=== PATIENT | male | born 1995 | race African-American/Black ===

== ENCOUNTER 2020-08-20 04:04 | Emergency (ER) | payer OTHER ==
[2020-08-20 04:08] VITALS: TEMP 97.9
[2020-08-20] MEDS ORDERED: IPRATROPIUM-ALBUTEROL 3 ML NEB INHALATION STA (04:14)
[2020-08-20] MEDS ORDERED: predniSONE 20 MG TAB PO STA (04:14)
--- NOTE | 2020-08-20 04:14 | ED ---
SOB HPI - General Chief Complaint: Shortness of Breath Stated Complaint: SOB Time Seen by Provider: 08/20/20 04:06 Source: patient, family Mode of arrival: ambulatory Limitations: no limitations - Related Data Previous Rx's Medication Instructions Recorded Albuterol Nebulized [Ventolin 2.5 mg INHALATION Q4H PRN #25 nebu 08/20/20 Nebulized] Albuterol Sulfate [Proair Hfa] 1 - 2 puff INHALATION Q4H PRN #1 08/20/20 inhaler predniSONE 50 mg PO DAILY #5 tab 08/20/20 Allergies Allergy/AdvReac Type Severity Reaction Status Date / Time No Known Allergies Allergy Verified 08/20/20 04:08 Review of Systems ROS Statement: Those systems with pertinent positive or pertinent negative responses have been documented in the HPI. ROS Other: All systems not noted in ROS Statement are negative. Past Medical History Past Medical History: Asthma History of Any Multi-Drug Resistant Organisms: None Reported Past Surgical History: No Surgical Hx Reported Past Psychological History: No Psychological Hx Reported Smoking Status: Current every day smoker Past Alcohol Use History: None Reported Past Drug Use History: None Reported General Exam Limitations: no limitations Course Vital Signs 08/20/20 08/20/20 08/20/20 04:05 04:48 05:06 Temperature 97.9 F Pulse Rate 70 84 76 Respiratory 26 H Rate Blood Pressure 137/77 O2 Sat by Pulse 99 Oximetry 08/20/20 05:10 Temperature Pulse Rate Respiratory 25 H Rate Blood Pressure O2 Sat by Pulse Oximetry Disposition Clinical Impression: Asthma with acute exacerbation Disposition: HOME SELF-CARE Condition: Good Instructions (If sedation given, give patient instructions): Asthma (ED) Prescriptions: predniSONE 50 mg PO DAILY #5 tab Albuterol Sulfate [Proair Hfa] 1 - 2 puff INHALATION Q4H PRN #1 inhaler PRN Reason: Shortness Of Breath Albuterol Nebulized [Ventolin Nebulized] 2.5 mg INHALATION Q4H PRN #25 nebu PRN Reason: Shortness Of Breath Is patient prescribed a controlled substance at d/c from ED?: No Referrals: Nonstaff,Physician [Primary Care Provider] - 1-2 days
[2020-08-20 05:37] VITALS: BP 150/84; PULSE 86; RESP 18
== END 2020-08-20 05:36 | disposition home or self-care (01) ==
LOC: EC 04:04
DX: J45.901 Unspecified asthma with (acute) exacerbation (principal); F17.200 Nicotine dependence, unspecified, uncomplicated; Z79.51 Long term (current) use of inhaled steroids
CPT/HCPCS: 94640; 99284; J7512